=== PATIENT | female | born 1950 | race Caucasian/White ===

== ENCOUNTER → 2016-09-26 09:02 | Outpatient (CLI) | payer MEDICARE, MEDICAID | END | disposition home or self-care (01) | LOC: D.CT 09:02 | DX: R94.2 Abnormal results of pulmonary function studies (principal) ==

== ENCOUNTER 2017-03-22 11:55 | Observation (INO) | payer MEDICARE, MEDICAID ==
[~2017-03-22] VITALS: Ht 162.6 cm; Wt 66.7 kg
[2017-03-22 13:00] LABS: BASOPHILS 0.2 % (0-2); EOSINOPHILS 0.1 % (0-7); HEMATOCRIT 44.6 % (36.0-48.0); HEMOGLOBIN 14.9 g/dL (12-16); IMMATURE GRANULOCYTES 0.3 % (0-5); LYMPHOCYTES 10.1 % (15-50); MCH 29.2 pg (26.0-34.0); MCHC 33.4 g/dL (31.0-37.0); MCV 87.5 fL (80.0-100.0); MEAN PLATELET VOLUME 11.2 fL (7.4-10.4); MONOCYTES 3.6 % (2-11); NEUTROPHILS 85.7 % (40-80); PLATELET COUNT 256 10x3/uL (130-400); RDW 12.8 % (11.5-14.5); WBC 12.9 10x3/uL (4.8-10.8)
[2017-03-22 13:09] LABS: ALBUMIN 4.2 g/dL (3.4-5.0); ALKALINE PHOSPHATASE 101 U/L (46-116); ALT (SGPT) 26 U/L (10-68); BILIRUBIN - TOTAL 0.75 mg/dL (0.2-1.3); CALC OSMOLALITY 272 mosm/kg (275-300); CALCIUM 9.1 mg/dL (8.5-10.1); CARBON DIOXIDE 26.2 mmol/L (21.0-32.0); CHLORIDE - SERUM 101 mmol/L (98-107); CREATININE - SERUM 0.9 mg/dL (0.6-1.3); GLUCOSE 124 mg/dL (74-106); POTASSIUM - SERUM 4.1 mmol/L (3.5-5.1); PROTEIN - SERUM 8.8 g/dL (6.4-8.2); SODIUM 136 mmol/L (136-145); UREA NITROGEN 12 mg/dL (7-18); eGFR NON AFRICAN AMERICAN 67 mL/min (90-120)
[2017-03-22 13:10] LABS: CREATINE KINASE 129 UL (21-215); MAGNESIUM - SERUM 2.1 mg/dL (1.8-2.4)
[2017-03-22 13:14] LABS: TROPONIN-I < 0.017 ng/mL (0.000-0.060)
[2017-03-22 15:08] LABS: APPEARANCE CLEAR (CLEAR); BILIRUBIN NEGATIVE (NEGATIVE); COLOR YELLOW (YELLOW); GLUCOSE NEGATIVE (NEGATIVE); KETONE MODERATE mg/dL (NEGATIVE); LEUKOCYTE ESTERASE NEGATIVE (NEGATIVE); NITRITE POSITIVE (NEGATIVE); PROTEIN NEGATIVE (NEGATIVE); SPECIFIC GRAVITY 1.015 (1.005-1.020); UROBILINOGEN NORMAL (NORMAL)
[2017-03-22 15:10] LABS: BACTERIA MANY /hpf (NONE SEEN); EPITHELIAL CELLS 0-5 /hpf (0-5); RED CELLS - URINE 0-5 /hpf (0-5)
[2017-03-22 15:12] LABS: UDS - AMPHET NEGATIVE QUAL (NEGATIVE); UDS - BARB NEGATIVE QUAL (NEGATIVE); UDS - BENZO NEGATIVE QUAL (NEGATIVE); UDS - COCAINE NEGATIVE QUAL (NEGATIVE); UDS - METH NEGATIVE QUAL (NEGATIVE); UDS - OPIATE NEGATIVE QUAL (NEGATIVE); UDS - PCP NEGATIVE QUAL (NEGATIVE); UDS - THC NEGATIVE QUAL (NEGATIVE)
[2017-03-22 19:00] VITALS: BP 130/79
--- NOTE | 2017-03-22 20:10 | NUR ---
REC'D PT FROM ER VIA BED. PT A/O X3. PT ORIENTED TO ROOM AND CALL LIGHT. PLACED SCD'S ON PT. TURNED ON BED ALARM. ASKED PT TO USE CALL LIGHT IF SHE NEEDS TO USE THE RESTROOM. ALTHOUGH PT IS A/O X3 SHE SEEMS A LITTLE DISORIENTED. FALL BRACELT PLACED ON PT. IV TO PT'S LEFT HAND PLACED BY EMS IS A 18 G, AND IS PATENT. PT DENIES SOB OR CHEST PAIN. PT STATES " IM JUST TIRED." DENIES WANTS OR NEEDS AT THIS TIME. VS-T-97.4,P-93,B/P-132/77,R-18,O2-97 ON RA. CALL LIGHT WITH IN REACH. BED DOWN, SIDE RAILS UP X2. WILL CONT. TO MONITOR.
[2017-03-22 22:35] VITALS: BMI 26.1
--- NOTE | 2017-03-22 22:56 | NUR ---
PT SLEEPING. LAYING ON LEFT SIDE. EYES CLOSED, RESP EVEN AND UNLABORED. CALL LIGHT WITH IN REACH. WILL CONT. TO MONITOR.
--- NOTE | 2017-03-23 01:38 | NUR ---
PT SLEEPING. RESP EVEN AND UNLABORED. APPEARS COMFORTABLE. CALL LIGHT WITH IN REACH. WILL CONT. TO MONITOR.
[2017-03-23] MEDS ORDERED: PRAVASTATIN SOD10 MG PO (01:56)
[2017-03-23] MEDS ORDERED: NEURONTIN 300300 MG PO (01:57)
[2017-03-23] MEDS ORDERED: SYMBICORT 16010.2 GM INH (01:58)
[2017-03-23] MEDS ORDERED: VENTOLIN HFA18 GM INH (01:58)
[2017-03-23] MEDS ORDERED: LATUDA40 MG PO (01:59)
[2017-03-23] MEDS ORDERED: KLONOPIN1 MG PO (01:59)
--- NOTE | 2017-03-23 03:47 | NUR ---
PT SLEEPING. EYES CLOSED, RESP EVEN AND UNLABORED. NO DISTRESS NOTED. CALL LIGHT WITH IN REACH. BED LOW. WILL CONT. TO MONITOR.
[2017-03-23 04:00] VITALS: BP 111/67
--- NOTE | 2017-03-23 05:05 | NUR ---
PT SITTING UP IN BED WATCHING TV. A/O. REQUEST ICE WATER. NO DISTRESS NOTED. CALL LIGHT WITH IN REACH. WILL CONT. TO MONITOR.
[2017-03-23 06:48] LABS: BASOPHILS 0.2 % (0-2); EOSINOPHILS 0.6 % (0-7); HEMATOCRIT 41.1 % (36.0-48.0); HEMOGLOBIN 13.6 g/dL (12-16); IMMATURE GRANULOCYTES 0.2 % (0-5); LYMPHOCYTES 23.1 % (15-50); MCH 29.1 pg (26.0-34.0); MCHC 33.1 g/dL (31.0-37.0); MCV 87.8 fL (80.0-100.0); MEAN PLATELET VOLUME 10.9 fL (7.4-10.4); MONOCYTES 8.9 % (2-11); PLATELET COUNT 232 10x3/uL (130-400); RBC 4.68 10x6/uL (4.00-5.40); WBC 9.9 10x3/uL (4.8-10.8)
[2017-03-23 07:05] LABS: ANION GAP 13.4 mmol/L (8-16); CARBON DIOXIDE 23.6 mmol/L (21.0-32.0); CREATININE - SERUM 0.9 mg/dL (0.6-1.3)
--- NOTE | 2017-03-23 07:14 | NUR ---
AM ROUNDS- PT IN BED, DENIES ANY NEEDS AT THIS TIME. RESP EVEN AND UNLABORED ON RA. LT WRIST SL, BED LOW AND WHEELS LOCKED, BEDSIDE RAILS X2, SCD'S ON BILAT. CALL LIGHT IN REACH, NAD NOTED, WILL CONTINUE TO MONITOR.
[2017-03-23 08:22] VITALS: BP 123/76
[2017-03-23 10:19] VITALS: Ht 162.6 cm; Wt 66.7 kg
[2017-03-23 12:09] VITALS: BP 130/79
[2017-03-23] MEDS ORDERED: LEVAQUIN500 MG PO (14:53)
[2017-03-23 16:17] VITALS: BP 119/81
--- NOTE | 2017-03-23 16:59 | NUR ---
PROVIDED VERBAL AND WRITTEN DISCHARGE TEACHING TO PT. PT VERBALIZED UNDERSTANDING REGARDING TEACHING. D/C RT HAND IV, TIP INTACT. PT WILL NOTIFY NURSE WHEN RIDE GETS HERE. NAD NOTED, WILL CONTINUE TO MONITOR.
--- NOTE | 2017-03-23 18:08 | NUR ---
PT LEFT UNIT VIA WHEELCHAIR, NAD NOTED.
--- NOTE | 2017-03-23 18:12 | NUR ---
Patient at desk. Ready for discharge. She was attempting to get transportation [facility]. CM advised the nurse, Mckenna, that CM could approve a taxi via voucher from [facility]. The bus runs short hours on the weekend. Taxi approved.
== END 2017-03-23 18:30 | disposition home or self-care (01) ==
LOC: D.ER 11:55 → D.M2 19:21 → OBSVTIME 19:21 → D.M2 03-23 18:30
PROVIDERS: Nurse Practitioner Family; ADMIT Emergency Medicine
DX: R41.82 Altered mental status, unspecified (principal); T42.4X6A Underdosing of benzodiazepines, initial encounter; N39.0 Urinary tract infection, site not specified; F20.9 Schizophrenia, unspecified; F31.9 Bipolar disorder, unspecified; I10 Essential (primary) hypertension; F41.9 Anxiety disorder, unspecified; B18.2 Chronic viral hepatitis C; R07.9 Chest pain, unspecified; R00.2 Palpitations

== ENCOUNTER → 2017-03-27 10:06 | Outpatient (CLI) | payer MEDICARE, MEDICAID ==
[2017-03-23 10:19] VITALS: BMI 25.2
[~2017-03-27 10:06] MED LIST: KLONOPIN1 MG PO; LATUDA40 MG PO; LEVAQUIN500 MG PO; NEURONTIN 300300 MG PO; PRAVASTATIN SOD10 MG PO; SYMBICORT 16010.2 GM INH; VENTOLIN HFA18 GM INH
== END | disposition home or self-care (01) ==
LOC: D.CT 03-25 11:00
DX: R91.8 Other nonspecific abnormal finding of lung field (principal)

== ENCOUNTER → 2017-04-10 14:51 | Outpatient (CLI) | payer MEDICARE, MEDICAID ==
[2017-03-23 10:19] VITALS: BMI 25.2
== END | disposition home or self-care (01) ==
LOC: D.MAMMO 10:15
DX: Z12.31 Encounter for screening mammogram for malignant neoplasm of breast (principal)

== ENCOUNTER → 2018-01-17 09:28 | Outpatient (CLI) | payer MEDICARE, MEDICAID ==
[2017-03-23 10:19] VITALS: BMI 25.2
== END | disposition home or self-care (01) ==
LOC: D.CT 01-13 10:30
DX: I71.2 Thoracic aortic aneurysm, without rupture (principal)

== ENCOUNTER → 2018-05-26 09:33 | Outpatient (CLI) | payer MEDICARE, MEDICAID ==
[2017-03-23 10:19] VITALS: BMI 25.2
== END | disposition home or self-care (01) ==
LOC: D.CT 05-23 10:30
DX: R91.1 Solitary pulmonary nodule (principal)

== ENCOUNTER 2018-11-05 16:01 | Emergency (ER) | payer MEDICARE, MEDICAID ==
[~2018-11-05] VITALS: Ht 162.6 cm; Wt 64.5 kg
[2018-11-05 16:04] VITALS: Ht 162.6 cm; Wt 64.5 kg
[2018-11-05 16:32] LABS: BASOPHILS 0.3 % (0-2); EOSINOPHILS 0.5 % (0-7); HEMOGLOBIN 14.1 g/dL (12-16); IMMATURE GRANULOCYTES 0.3 % (0-5); MCH 29.9 pg (26.0-34.0); MCHC 34.4 g/dL (31.0-37.0); NEUTROPHILS 61.9 % (40-80); PLATELET COUNT 215 10x3/uL (130-400); RBC 4.71 10x6/uL (4.00-5.40); RDW 12.5 % (11.5-14.5); WBC 9.7 10x3/uL (4.8-10.8)
[2018-11-05 16:59] LABS: ALKALINE PHOSPHATASE 75 U/L (46-116); ALT (SGPT) 19 U/L (10-68); CALC OSMOLALITY 280 mosm/kg (275-300); CALCIUM 8.9 mg/dL (8.5-10.1); CARBON DIOXIDE 25.6 mmol/L (21.0-32.0); CHLORIDE - SERUM 103 mmol/L (98-107); CREATININE - SERUM 0.8 mg/dL (0.6-1.3); GLUCOSE 106 mg/dL (74-106); MAGNESIUM - SERUM 1.9 mg/dL (1.8-2.4); POTASSIUM - SERUM 4.5 mmol/L (3.5-5.1); SODIUM 140 mmol/L (136-145); UREA NITROGEN 17 mg/dL (7-18); eGFR NON AFRICAN AMERICAN 76 mL/min (90-120)
[2018-11-05 17:34] LABS: VALPROIC ACID (DEPAKOTE) 0.2 ug/mL (50.0-100.0)
[2018-11-05 17:59] LABS: APPEARANCE HAZY (CLEAR); COLOR YELLOW (YELLOW); SPECIFIC GRAVITY 1.015 (1.005-1.020)
[2018-11-05 18:00] LABS: BILIRUBIN NEGATIVE (NEGATIVE); GLUCOSE NEGATIVE (NEGATIVE); KETONE NEGATIVE (NEGATIVE); NITRITE NEGATIVE (NEGATIVE); PROTEIN NEGATIVE (NEGATIVE); UROBILINOGEN NORMAL (NORMAL)
[2018-11-05 18:04] LABS: RED CELLS - URINE 0-5 /hpf (0-5); WHITE CELLS - URINE >50 /hpf (0-5)
[2018-11-05 18:05] LABS: BACTERIA MANY /hpf (NONE SEEN); EPITHELIAL CELLS 0-5 /hpf (0-5)
[2018-11-05 18:07] LABS: UDS - AMPHET NEGATIVE QUAL (NEGATIVE); UDS - BARB NEGATIVE QUAL (NEGATIVE); UDS - BENZO NEGATIVE QUAL (NEGATIVE); UDS - COCAINE NEGATIVE QUAL (NEGATIVE); UDS - OPIATE NEGATIVE QUAL (NEGATIVE); UDS - PCP NEGATIVE QUAL (NEGATIVE); UDS - THC NEGATIVE QUAL (NEGATIVE)
[2018-11-05] MEDS ORDERED: KEPPRA500 MG PO (18:42)
[2018-11-05] MEDS ORDERED: MACROBID100 MG PO (18:42)
[2018-11-05 19:11] VITALS: BP 158/89
== END 2018-11-05 19:11 | disposition home or self-care (01) ==
LOC: D.ER 16:01
PROVIDERS: Emergency Medicine
DX: G40.909 Epilepsy, unspecified, not intractable, without status epilepticus (principal); Z86.59 Personal history of other mental and behavioral disorders; I10 Essential (primary) hypertension; Z91.14 Patient's other noncompliance with medication regimen

== ENCOUNTER 2018-11-07 11:54 | Inpatient (IN) | payer MEDICARE, MEDICAID ==
[~2018-11-07] VITALS: Ht 162.6 cm; Wt 62.4 kg
--- NOTE | ~2018-11-07 | PN ---
PATIENT:KRISTIN MURRAY MEDICAL RECORD: [id number] LOCATION:[facility] ADMISSION DATE: 11/07/18 PROGRESS NOTE DATE OF SERVICE: 11/17/2018 SUBJECTIVE: Ms. Murray is a 68-year-old female with reported chronic schizophrenia and a history of drug abuse and also reports seizure disorder history. She apparently was psychotic, rambling had been aggressive towards people, her neighbors in her apartment building. We had a very hard time getting in touch with any family members and finally did get in touch with the daughter who was out of state and fairly unaware of her mother's activities. The patient is alert and oriented times 3. She is slightly hyperverbal in her presentation. She slept 8.25 hours. States she is feeling well. She is eating 100% of meals. Her last Depakote level was 83.6 and she is taking medication well. OBJECTIVE: VITAL SIGNS: 97.7, 68, 17,120/75, and 95%. ASSESSMENT: Unchanged. PLAN: Continue current management. Anticipated discharge soon, although the patient's ongoing medication compliance is questionable. There are limited options as far as placement for her right now, she does not meet longterm criteria. We will try to get maximum services including home health care and adult protective services as she has been aggressive to others, in particular. Case was discussed with nursing, chart reviewed. The patient interviewed. TRANSINT:[id number] Voice Confirmation ID: [id number] DOCUMENT ID: [id number] GOYO PRITCHARD MD CC: [id number] DICTATION DATE: 11/17/18 1309 STITCH BONDING MACHINE TENDER HELPER: 11/17/182027 ADM IN [facility] [address] [id number]
[~2018-11-07 11:54] MED LIST changes: +KEPPRA500 MG PO; +MACROBID100 MG PO
[2018-11-07 12:28] LABS: BASOPHILS 0.3 % (0-2); EOSINOPHILS 1.1 % (0-7); HEMATOCRIT 36.9 % (36.0-48.0); HEMOGLOBIN 12.8 g/dL (12-16); IMMATURE GRANULOCYTES 0.1 % (0-5); LYMPHOCYTES 37.7 % (15-50); MCH 30.1 pg (26.0-34.0); MCHC 34.7 g/dL (31.0-37.0); MCV 86.8 fL (80.0-100.0); MEAN PLATELET VOLUME 10.8 fL (7.4-10.4); MONOCYTES 8.8 % (2-11); PLATELET COUNT 194 10x3/uL (130-400); RBC 4.25 10x6/uL (4.00-5.40); RDW 12.8 % (11.5-14.5)
[2018-11-07 12:29] LABS: WBC 7.1 10x3/uL (4.8-10.8)
[2018-11-07 12:33] LABS: APTT 25.8 SECONDS (22.8-39.4); INR 1.1 (0.85-1.17); PROTIME 13.7 SECONDS (11.6-15.0)
[2018-11-07 12:38] LABS: ALBUMIN 3.8 g/dL (3.4-5.0); ALKALINE PHOSPHATASE 68 U/L (46-116); ALT (SGPT) 18 U/L (10-68); BILIRUBIN - TOTAL 0.64 mg/dL (0.2-1.3); CALCIUM 8.5 mg/dL (8.5-10.1); CARBON DIOXIDE 24.2 mmol/L (21.0-32.0); CHLORIDE - SERUM 104 mmol/L (98-107); CREATININE - SERUM 0.7 mg/dL (0.6-1.3); GLUCOSE 99 mg/dL (74-106); PROTEIN - SERUM 7.3 g/dL (6.4-8.2); SODIUM 139 mmol/L (136-145); eGFR NON AFRICAN AMERICAN 88 mL/min (90-120)
[2018-11-07 12:39] LABS: CALC OSMOLALITY 280 mosm/kg (275-300); POTASSIUM - SERUM 3.5 mmol/L (3.5-5.1); UREA NITROGEN 22 mg/dL (7-18)
[2018-11-07 12:50] LABS: CKMB 1.2 U/L (0.0-3.6); CREATINE KINASE 48 UL (21-215); MAGNESIUM - SERUM 1.9 mg/dL (1.8-2.4); THYROID STIMULATING HORMONE 0.48 uIU/mL (0.36-3.74); TROPONIN-I < 0.017 ng/mL (0.000-0.060)
[2018-11-07 13:43] LABS: APPEARANCE CLEAR (CLEAR); BILIRUBIN NEGATIVE (NEGATIVE); COLOR YELLOW (YELLOW); GLUCOSE NEGATIVE (NEGATIVE); KETONE NEGATIVE (NEGATIVE); NITRITE NEGATIVE (NEGATIVE); PROTEIN NEGATIVE (NEGATIVE); SPECIFIC GRAVITY 1.025 (1.005-1.020); UROBILINOGEN NORMAL (NORMAL)
[2018-11-07 13:44] LABS: EPITHELIAL CELLS 0-5 /hpf (0-5); MUCUS <1+ /lpf (NONE SEEN); RED CELLS - URINE RARE /hpf (0-5); WHITE CELLS - URINE 0-5 /hpf (0-5)
[2018-11-07 13:46] LABS: UDS - AMPHET NEGATIVE QUAL (NEGATIVE); UDS - BARB NEGATIVE QUAL (NEGATIVE); UDS - BENZO NEGATIVE QUAL (NEGATIVE); UDS - COCAINE NEGATIVE QUAL (NEGATIVE); UDS - OPIATE NEGATIVE QUAL (NEGATIVE); UDS - PCP NEGATIVE QUAL (NEGATIVE); UDS - THC NEGATIVE QUAL (NEGATIVE)
[2018-11-07 15:12] VITALS: BP 156/87
[2018-11-07 20:39] VITALS: BP 170/103; BMI 24.0
[2018-11-07 22:55] VITALS: BP 170/103
[2018-11-08 07:15] LABS: ALBUMIN 3.6 g/dL (3.4-5.0); ALKALINE PHOSPHATASE 64 U/L (46-116); ALT (SGPT) 14 U/L (10-68); BILIRUBIN - TOTAL 0.46 mg/dL (0.2-1.3); CARBON DIOXIDE 24.8 mmol/L (21.0-32.0); CHLORIDE - SERUM 109 mmol/L (98-107); CHOL - HDL RATIO 4.8 ratio (2.3-4.1); CHOLESTEROL, TOTAL 208 mg/dL (0-200); CREATININE - SERUM 0.7 mg/dL (0.6-1.3); GLUCOSE 112 mg/dL (74-106); HDL CHOLESTEROL 43 mg/dL (32-96); LDL CHOLESTEROL 155 mg/dL (0-100); LDL-HDL RATIO 3.6 ratio (1.5-3.5); SODIUM 141 mmol/L (136-145); THYROID STIMULATING HORMONE 0.63 uIU/mL (0.36-3.74); TRIGLYCERIDE 50 mg/dL (30-200); eGFR NON AFRICAN AMERICAN 88 mL/min (90-120)
[2018-11-08 07:17] LABS: CALC OSMOLALITY 282 mosm/kg (275-300); POTASSIUM - SERUM 4.4 mmol/L (3.5-5.1); UREA NITROGEN 15 mg/dL (7-18)
[2018-11-08 08:00] VITALS: BP 148/90
[2018-11-08 10:49] VITALS: BMI 24.0
[2018-11-09 00:35] VITALS: BP 120/76
[2018-11-09 07:00] VITALS: BP 110/73
--- NOTE | 2018-11-09 10:05 | PSY ---
PATIENT NAME:KRISTIN MURRAY MEDICAL RECORD: [id number] : 51 LOCATION:[facility] ADMISSION DATE: 11/07/18 ACCOUNT: [id number] PSYCHIATRIC EVALUATION DATE OF EVALUATION: 11/08/18 IDENTIFYING DATA: The patient is 68 years old and she is admitted to the hospital on a voluntary basis. CHIEF COMPLAINT: Aggression. HISTORY OF PRESENT ILLNESS: The patient has a long history of schizophrenia. She lives in public housing and a neighbor called 911 after she became aggressive. While in the Emergency Room, she was disorganized, rambling and confused. It was clear that she was quite delusional. She is having auditory hallucinations and is talking to people not present. She is showing manic behavior along with the paranoia. She is saying that the Boat Assembler is given her permission to shoot people that she thinks need to be shot and she is claiming to have the firearms, which is not true. PAST MEDICAL HISTORY: Significant for a seizure disorder secondary to a cerebral aneurysm. She also has a history of hypertension and hepatitis. PAST PSYCHIATRIC HISTORY: Significant for a longstanding diagnosis of schizophrenia along with a long history of polysubstance abuse through her adult life. FAMILY HISTORY: Unknown. ALLERGIES: No known drug allergies. CURRENT MEDICATIONS: Include Latuda, Klonopin, Symbicort, Ventolin, Neurontin, Pravachol, and Macrobid. SOCIAL HISTORY: The patient is . She has adult children. She has no legal entanglements, although she has been incarcerated in the past. She has not functioned well socially or occupationally. MENTAL STATUS EXAMINATION: The patient is awake, alert and oriented to person, place and somewhat to time and situation. Her mood is anxious. Her affect is constricted. Thought processes are circumstantial. Memory, concentration, and abstraction abilities are moderately impaired and she denies any active intent to harm herself or others as well as overt psychotic symptoms. ASSETS: Supportive family members. LIABILITIES: Limited insight. DIAGNOSTIC IMPRESSION: AXIS I: Schizophrenia, chronic, undifferentiated AXIS II: None. AXIS III: Seizure disorder, hepatitis, COPD. AXIS IV: Moderate. AXIS V: Global assessment of functioning is 30. PLAN: At this time, the patient will be admitted to the hospital secondary to delusional, agitated behavior associated with the mental illness. She will be treated with antipsychotic and mood stabilizing medications. Her long-term prognosis is guarded. TRANSINT:[id number] Voice Confirmation ID: [id number] DOCUMENT ID: [id number] JACQUI HYATT MD at 1005 CC: [id number] DICTATION DATE: 11/08/18 1203 DOCUMENT RESTORER: 11/08/18 1243 ADM IN [address] [id number] [place] [address]
[2018-11-09 20:22] VITALS: BP 132/73
[2018-11-10 07:00] VITALS: BP 132/76
[2018-11-10 12:12] LABS: FOLATE (FOLIC ACID) - SERUM 19.1 ng/mL (>3.0)
--- NOTE | 2018-11-10 15:11 | PN ---
PATIENT:KRISTIN MURRAY MEDICAL RECORD: [id number] LOCATION:[facility] ADMISSION DATE: 11/07/18 PROGRESS NOTE DATE OF SERVICE: 11/09/2018 SUBJECTIVE: The patient's case was discussed with staff. She has no new complaint. OBJECTIVE: The patient is continuing to be delusional and is regularly observed to be talking to people not present. She denies that she would seek to harm herself. ASSESSMENT: Schizophrenia. PLAN: Brief supportive and educational interventions were made. The patient's established problem of psychosis is better. Current medicines have been reviewed and will be maintained. TRANSINT:[id number] Voice Confirmation ID: [id number] DOCUMENT ID: [id number] JACQUI HYATT MD at 1511 CC: [id number] DICTATION DATE: 11/09/18 1129 HISTOLOGIST: 11/09/18 1845 ADM IN [facility] [address] [id number]
[2018-11-10 20:32] VITALS: BP 113/86
[2018-11-11 06:14] LABS: RAPID PLASMA REAGIN Non Reactive (Non Reactive)
[2018-11-11 07:00] VITALS: BP 129/80
[2018-11-11 11:49] VITALS: Ht 162.6 cm; Wt 62.4 kg
--- NOTE | 2018-11-11 15:34 | PN ---
PATIENT:KRISTIN MURRAY MEDICAL RECORD: [id number] LOCATION:[facility] ADMISSION DATE: 11/07/18 PROGRESS NOTE DATE OF SERVICE: 11/10/2018 SUBJECTIVE: The patient's case was discussed with staff. She has no new complaint. OBJECTIVE: The patient is delusional, but much less intense about it. She is tolerating her current medicines reasonably well, and at this point, I am going to be tapering her down and possibly off of the Klonopin. She is not showing any evidence of aggression. I think her prognosis is guarded and I am not sure what her baseline level of functioning (although I suspect it is delusional). TRANSINT:[id number] Voice Confirmation ID: [id number] DOCUMENT ID: [id number] JACQUI HYATT MD at 1534 CC: [id number] DICTATION DATE: 11/10/18 1550 INSPECTOR AND MENDER: 11/10/18 1843 ADM IN [place] [id number] [place] [id number]
[2018-11-11 19:45] VITALS: BP 116/65
--- NOTE | 2018-11-12 15:01 | PN ---
PATIENT:KRISTIN MURRAY MEDICAL RECORD: [id number] LOCATION:[facility] ADMISSION DATE: 11/07/18 PROGRESS NOTE DATE OF SERVICE: 11/11/2018 SUBJECTIVE: The patient's case was discussed with staff. She has no new complaint. OBJECTIVE: The patient is delusional and significantly disorganized. She is denying any intent to harm herself or others. She has very poor insight. ASSESSMENT: Schizophrenia. PLAN: The patient will have a Depakote level checked. Her long-term prognosis is guarded. TRANSINT:[id number] Voice Confirmation ID: [id number] DOCUMENT ID: [id number] JACQUI HYATT MD at 1501 CC: [id number] DICTATION DATE: 11/11/18 1554 FIRE EQUIPMENT INSPECTOR HELPER: 11/11/18 1928 ADM IN [facility] [address] [place] [address]
[2018-11-12 20:18] VITALS: BP 128/71
--- NOTE | 2018-11-13 08:28 | PN ---
PATIENT:KRISTIN MURRAY MEDICAL RECORD: [id number] LOCATION:[facility] ADMISSION DATE: 11/07/18 PROGRESS NOTE DATE OF SERVICE: 11/12/2018 SUBJECTIVE: The patient's case was discussed with staff. She has no new complaint. OBJECTIVE: The patient denies intent to harm herself or others. She is significantly and seriously impaired cognitively. She is also delusional. ASSESSMENT: Schizophrenia. PLAN: Current medicines have been reviewed and will be maintained. Her long-term prognosis is guarded. TRANSINT:[id number] Voice Confirmation ID: [id number] DOCUMENT ID: [id number] JACQUI HYATT MD at 0828 CC: [id number] DICTATION DATE: 11/12/18 1619 DEPUTY ATTORNEY GENERAL: 11/12/18 1644 ADM IN [place] [id number] [place] [address]
[2018-11-13 09:30] VITALS: BP 128/71
[2018-11-13 20:00] VITALS: BP 139/73
[2018-11-14 09:34] VITALS: BP 125/79
[2018-11-14 20:19] VITALS: BP 150/64
[2018-11-15 09:21] VITALS: BP 119/74
--- NOTE | 2018-11-15 12:33 | PN ---
PATIENT:KRISTIN MURRAY MEDICAL RECORD: [id number] LOCATION:[facility] ADMISSION DATE: 11/07/18 PROGRESS NOTE DATE OF SERVICE: 11/13/2018 SUBJECTIVE: The patient's case was discussed with staff. She has no new complaint. OBJECTIVE: The patient continues to have ongoing delusional thought content, but is much less agitated than she previously has been. Unfortunately, we have been unable to contact her family and adult protective services is involved with the case. ASSESSMENT: Schizophrenia. PLAN: Current medicines have been reviewed and will be maintained. Her long-term prognosis is guarded. TRANSINT:[id number] Voice Confirmation ID: [id number] DOCUMENT ID: [id number] JACQUI HYATT MD at 1233 CC: [id number] DICTATION DATE: 11/13/18 1609 MOLD SETTER: 11/13/18 1802 ADM IN [facility] [address] [place] [address]
--- NOTE | 2018-11-15 12:33 | PN ---
PATIENT:KRISTIN MURRAY MEDICAL RECORD: [id number] LOCATION:[facility] ADMISSION DATE: 11/07/18 PROGRESS NOTE DATE OF SERVICE: 11/14/2018 SUBJECTIVE: The patient's case was discussed with staff. She has no new complaint. OBJECTIVE: The patient continues to make delusional statements, but overall has significantly improved. Unfortunately, it is difficult to find placement for her as we have been unable to contact any family members. She does not look over sedated, but she certainly is not agitated either and so I am going to begin tapering down her Klonopin, which I do not want to use long-term and simply gave her early in the hospitalization to help relieve some of her agitation. TRANSINT:[id number] Voice Confirmation ID: [id number] DOCUMENT ID: [id number] JACQUI HYATT MD at 1233 CC: [id number] DICTATION DATE: 11/14/18 171 ROOFING APPRENTICE: 11/15/18 0004 ADM IN [address] [place] [address]
[2018-11-15 21:47] VITALS: BP 96/59
[2018-11-16 07:00] VITALS: BP 134/87
--- NOTE | 2018-11-16 12:21 | PN ---
PATIENT:KRISTIN MURRAY MEDICAL RECORD: [id number] LOCATION:[facility] ADMISSION DATE: 11/07/18 PROGRESS NOTE DATE OF SERVICE: 11/15/2018 SUBJECTIVE: The patient's case was discussed with staff. She has no new complaint. OBJECTIVE: The patient is significantly calmer than she had been. She is tolerating her medicines well. She had a therapeutic Depakote level a few days ago. I see no reason to recheck it at this time. ASSESSMENT: Schizophrenia. PLAN: I anticipate the patient will be transitioned out of the hospital soon. There are some significant problems with her discharge planning, since we were unable to contact any family members and [facility] is helping us, but so far they have not been able to find any family members either. TRANSINT:[id number] Voice Confirmation ID: [id number] DOCUMENT ID: [id number] JACQUI HYATT MD at 1221 CC: [id number] DICTATION DATE: 11/15/18 1247 HUMAN SERVICES ASSISTANT: 11/15/182052 ADM IN [place] [id number] [place] [id number]
[2018-11-16 21:03] VITALS: BP 106/63; BP 170/78
[2018-11-17 07:00] VITALS: BP 128/75
[2018-11-17 20:30] VITALS: BP 111/64
[2018-11-18 08:00] VITALS: BP 130/82
[2018-11-18] MEDS ORDERED: ZYPREXA5 MG PO (09:31)
[2018-11-18] MEDS ORDERED: DEPAKOTE500 MG PO (09:31)
[2018-11-18] MEDS ORDERED: LIPITOR10 MG PO (09:31)
[2018-11-18] MEDS ORDERED: LOPRESSOR25 MG PO (09:31)
[2018-11-18] MEDS ORDERED: VITAMIN D5000 UNIT PO (09:32)
[2018-11-18] MEDS ORDERED: KLONOPIN0.5 MG PO (09:32)
--- NOTE | 2018-11-19 12:57 | PN ---
PATIENT:KRISTIN MURRAY MEDICAL RECORD: [id number] LOCATION:[facility] ADMISSION DATE: 11/07/18 PROGRESS NOTE DATE OF SERVICE: 11/16/2018 SUBJECTIVE: The patient's case was discussed with staff. She has no new complaint. OBJECTIVE: The patient is in good behavioral control. She is not making any delusional statements today. She has not been aggressive. ASSESSMENT: Schizophrenia. PLAN: The patient will be transitioned out of the hospital soon. There are issues regarding her placement with no family being able to contact and adult protective services is assisting us, but so far has not found us placement or family members who can help us. TRANSINT:[id number] Voice Confirmation ID: [id number] DOCUMENT ID: [id number] JACQUI HYATT MD at 1257 CC: [id number] DICTATION DATE: 11/16/18 1219 AIR TRAFFIC CONTROL SPECIALIST CENTER: 11/16/181911 DIS IN 11/18/18 [facility] [address] [place] [address]
--- NOTE | 2018-11-19 12:57 | PN ---
PATIENT:KRISTIN MURRAY MEDICAL RECORD: [id number] LOCATION:[facility] ADMISSION DATE: 11/07/18 PROGRESS NOTE DATE OF SERVICE: 11/18/2018 SUBJECTIVE: The patient's case was discussed with staff. She has no new complaint. OBJECTIVE: The patient is in good behavioral control with poor insight about her condition. She is tolerating her medicines well. ASSESSMENT: Schizophrenia. PLAN: The patient will be transitioned out of the hospital today. Long-term prognosis is guarded. TRANSINT:[id number] Voice Confirmation ID: [id number] DOCUMENT ID: [id number] JACQUI HYATT MD at 1257 CC: [id number] DICTATION DATE: 11/18/18 1015 PERSONNEL MONITOR: 11/18/18 1453 DIS IN 11/18/18 [facility] [address] [place] [address]
== END 2018-11-18 16:00 | disposition home or self-care (01) | DRG 885 ==
LOC: D.ER 11:54 → D.PSYCH 15:14
PROVIDERS: Family Medicine; ADMIT Psychiatry & Neurology Psychiatry; ATTEND Psychiatry & Neurology Psychiatry
DX: F23 Brief psychotic disorder (principal); N39.0 Urinary tract infection, site not specified; G40.909 Epilepsy, unspecified, not intractable, without status epilepticus; K75.9 Inflammatory liver disease, unspecified; J44.9 Chronic obstructive pulmonary disease, unspecified; F31.9 Bipolar disorder, unspecified; I10 Essential (primary) hypertension; F41.9 Anxiety disorder, unspecified; B19.20 Unspecified viral hepatitis C without hepatic coma; Z91.14 Patient's other noncompliance with medication regimen; M19.90 Unspecified osteoarthritis, unspecified site; E78.5 Hyperlipidemia, unspecified; E55.9 Vitamin D deficiency, unspecified